=== PATIENT | female | born 1955 | race Caucasian/White ===

== ENCOUNTER 2017-08-30 17:04 | Inpatient (IN) ==
[2017-08-30] MEDS ORDERED: KETOROLAC 30 MG/1 ML VIAL IV STA (19:15)
[2017-08-30] MEDS ORDERED: KETOROLAC 30 MG/1 ML VIAL ONE (19:17)
[2017-08-30 19:48] LABS: Basophils # 0.1 10*3/uL (0.0-0.2); Basophils % 0.5 % (0.0-0.8); Eosinophils # 0.2 10*3/uL (0.0-0.87); Eosinophils % 1.5 % (0.00-10.9); Hematocrit 44.4 VOL% (35.7-47.0); Hemoglobin 15.4 GM/DL (12.0-16.0); Immature Granulocytes % 0.5 %; Immature Granulocytes Absolute 0.07 #; Lymphocytes # 3.2 10*3/uL (1.4-4.0); Lymphocytes % 21.5 % (21.3-54.2); Mean Corpuscular HGB Conc 34.7 GM/DL (32-36); Mean Corpuscular Hemoglobin 31 PG (27-34); Mean Corpuscular Volume 88.1 FL (87-102); Mean Platelet Volume 10.4 FL (9.6-12.0); Monocytes % 6.9 % (1.7-12.7); Neutrophils # 10.4 10*3/uL (1.4-7.4); Neutrophils % 69.1 % (38.7-73.9); Platelet Count 285 T/CUMM (130-400); Red Blood Count 5.04 MC/CUMM (3.8-5.5); Red Cell Distribution Width 13.2 % (9.3-17.3)
[2017-08-30 20:08] LABS: Alanine Aminotransferase 23 U/L (13-56); Albumin 3.5 G/DL (3.4-5.0); Alkaline Phosphatase 107 U/L (45-117); Aspartate Amino Transferase 15 U/L (0-37); Bilirubin,Total < 0.39 MG/DL (0.2-1.0); Blood Urea Nitrogen 9 MG/DL (7-18); Calcium 8.6 MG/DL (8.5-10.1); Glucose 81 MG/DL (74-106); Osmolality,Calculated 276.4 MOS/KG (273-304); Potassium 3.7 MMOL/L (3.5-5.1); Sodium 140 MMOL/L (136-145)
[2017-08-30] MEDS ORDERED: CEFEPIME 2,000 MG in SODIUM CHLORIDE 0.9% 100 ML IV STA (20:52)
[2017-08-30] MEDS ORDERED: ONDANSETRON 4 MG/2 ML VIAL IV STA (20:53)
[2017-08-30] MEDS ORDERED: metroNIDAZOLE INJ 500 MG in PREMIX 1 EACH IV STA (20:53)
[2017-08-30] MEDS ORDERED: MORPHINE 2 MG/1 ML SYRINGE IV STA (20:53)
[2017-08-30] MEDS ORDERED: CEFEPIME 2,000 MG in SODIUM CHLORIDE 0.9% 50 ML IV STA (20:59)
[2017-08-30] MEDS ORDERED: ONDANSETRON 4 MG/2 ML VIAL ONE (21:01)
[2017-08-30] MEDS ORDERED: metroNIDAZOLE 500 MG/100 ML PREMIX IV ONE (21:01)
[2017-08-30] MEDS ORDERED: MORPHINE 2 MG/1 ML SYRINGE ONE (21:02)
[2017-08-30] MEDS ORDERED: SODIUM CHLORIDE 0.9% 1,000 ML IV STA (21:06)
[2017-08-31] MEDS: LEVOFLOXACIN INJ 500 MG in PREMIX 1 EACH IV SCH (02:12)
[2017-08-31] MEDS: metroNIDAZOLE INJ 500 MG in PREMIX 1 EACH IV SCH ×3 (06:10→21:01)
[2017-08-31 06:30] LABS: Basophils # 0.1 10*3/uL (0.0-0.2); Basophils % 0.5 % (0.0-0.8); Eosinophils # 0.2 10*3/uL (0.0-0.87); Eosinophils % 1.9 % (0.00-10.9); Hematocrit 38.2 VOL% (35.7-47.0); Immature Granulocytes % 0.4 %; Immature Granulocytes Absolute 0.05 #; Lymphocytes # 2.3 10*3/uL (1.4-4.0); Lymphocytes % 18.7 % (21.3-54.2); Mean Corpuscular HGB Conc 34.3 GM/DL (32-36); Mean Corpuscular Hemoglobin 31 PG (27-34); Mean Platelet Volume 10.3 FL (9.6-12.0); Monocytes # 1.1 10*3/uL (0.11-0.8); Neutrophils # 8.5 10*3/uL (1.4-7.4); Neutrophils % 69.5 % (38.7-73.9); Platelet Count 255 T/CUMM (130-400); Red Blood Count 4.29 MC/CUMM (3.8-5.5); Red Cell Distribution Width 13.2 % (9.3-17.3); White Blood Count 12.2 T/CUMM (4-12)
[2017-08-31 06:42] LABS: Hemoglobin 13.1 GM/DL (12.0-16.0)
[2017-08-31 07:08] LABS: Albumin 2.7 G/DL (3.4-5.0); Bilirubin,Total 0.8 MG/DL (0.2-1.0); Osmolality,Calculated 273.5 MOS/KG (273-304); Potassium 3.7 MMOL/L (3.5-5.1); Total Protein 5.9 G/DL (6.4-8.3)
[2017-08-31] MEDS: PANTOPRAZOLE 40 MG TABLET PO SCH (09:03)
[2017-08-31] MEDS: SODIUM CHLORIDE 0.9% 1,000 ML IV SCH (12:14)
[2017-08-31] MEDS ORDERED: DEXTROSE 10% 1,000 ML IV PRN (17:00)
[2017-08-31] MEDS: FAT EMULSION 20% 250 ML IV SCH (17:10)
[2017-08-31] MEDS: TRACE ELEMENTS (5) 1 ML, MULTIVITAMIN INJ 10 ML in AMINO ACIDS/DEXT/LYTES 4.25-5% 2,000 ML IV SCH (17:11)
[2017-08-31] MEDS: ENOXAPARIN 40 MG/0.4 ML SYRINGE SUBCUT SCH (21:00)
[2017-08-31] MEDS: AMITRIPTYLINE 10 MG TABLET PO SCH (21:02)
[2017-09-01] MEDS: metroNIDAZOLE INJ 500 MG in PREMIX 1 EACH IV SCH ×3 (05:40→20:35)
[2017-09-01] MEDS: SODIUM CHLORIDE 0.9% 1,000 ML IV SCH ×3 (05:40→15:12)
[2017-09-01 06:07] LABS: Basophils # 0.1 10*3/uL (0.0-0.2); Basophils % 0.5 % (0.0-0.8); Eosinophils # 0.4 10*3/uL (0.0-0.87); Eosinophils % 4.1 % (0.00-10.9); Hematocrit 36.3 VOL% (35.7-47.0); Hemoglobin 12.5 GM/DL (12.0-16.0); Immature Granulocytes % 0.4 %; Immature Granulocytes Absolute 0.04 #; Lymphocytes # 2.5 10*3/uL (1.4-4.0); Lymphocytes % 25.3 % (21.3-54.2); Mean Corpuscular HGB Conc 34.4 GM/DL (32-36); Mean Corpuscular Hemoglobin 31 PG (27-34); Mean Corpuscular Volume 88.8 FL (87-102); Monocytes # 0.9 10*3/uL (0.11-0.8); Monocytes % 8.7 % (1.7-12.7); Platelet Count 225 T/CUMM (130-400); Red Blood Count 4.09 MC/CUMM (3.8-5.5); Red Cell Distribution Width 12.8 % (9.3-17.3); White Blood Count 9.9 T/CUMM (4-12)
[2017-09-01 06:42] LABS: Calcium 8.1 MG/DL (8.5-10.1); Osmolality,Calculated 276.5 MOS/KG (273-304); Potassium 3.7 MMOL/L (3.5-5.1)
[2017-09-01 06:46] LABS: Magnesium 2.1 MG/DL (1.8-2.4); Phosphorous 3.3 MG/DL (2.5-4.9); Prealbumin 14.2 MG/DL (20-40)
[2017-09-01] MEDS: LEVOFLOXACIN INJ 500 MG in PREMIX 1 EACH IV SCH (08:25)
[2017-09-01] MEDS: PANTOPRAZOLE 40 MG TABLET PO SCH (08:25)
[2017-09-01] MEDS: CITALOPRAM 40 MG TABLET PO SCH (08:25)
[2017-09-01] MEDS ORDERED: AMITRIPTYLINE 10 MG TABLET PO SCH (09:00)
[2017-09-01] MEDS: ONDANSETRON 4 MG/2 ML VIAL IV PRN (10:03)
[2017-09-01] MEDS: FAT EMULSION 20% 250 ML IV SCH (15:14)
[2017-09-01 17:51] LABS: Apearance,Urine CLEAR (Clear); Bacteria,Urine Occasional /HPF (Few); Bilirubin,Urine Negative (Negative); Blood, Urine Negative (Negative); Glucose,Urine (UA) Negative (Negative); Ketones,Urine 5 mg/dL (Negative); Nitrite,Urine Negative (Negative); Protein,Urine Negative; Squamous Epithelial Cell,Urine Occasional /HPF (0-10); Urine Color Yellow (Yellow); Urine Specific Gravity 1.008 (1.001-1.035); Urine Urobilinogen < 2.0 EU/DL (0.2-1.0); WBC,Urine <1 /HPF (0-6)
[2017-09-01] MEDS: AMITRIPTYLINE 10 MG TABLET PO SCH (20:00)
[2017-09-01] MEDS: TRACE ELEMENTS (5) 1 ML, MULTIVITAMIN INJ 10 ML in AMINO ACIDS/DEXT/LYTES 4.25-5% 2,000 ML IV SCH (20:35)
[2017-09-01] MEDS: ENOXAPARIN 40 MG/0.4 ML SYRINGE SUBCUT SCH (20:43)
[2017-09-02] MEDS: MORPHINE 2 MG/1 ML SYRINGE IV PRN ×2 (03:32→08:18)
[2017-09-02] MEDS: ONDANSETRON 4 MG/2 ML VIAL IV PRN ×3 (03:32→13:12)
[2017-09-02] MEDS: SODIUM CHLORIDE 0.9% 1,000 ML IV SCH ×2 (03:33→15:18)
[2017-09-02] MEDS: metroNIDAZOLE INJ 500 MG in PREMIX 1 EACH IV SCH ×3 (05:52→21:58)
[2017-09-02] MEDS: LEVOFLOXACIN INJ 500 MG in PREMIX 1 EACH IV SCH (08:08)
[2017-09-02] MEDS: PANTOPRAZOLE 40 MG TABLET PO SCH (08:09)
[2017-09-02] MEDS: CITALOPRAM 40 MG TABLET PO SCH (08:09)
[2017-09-02] MEDS: FAT EMULSION 20% 250 ML IV SCH (15:14)
[2017-09-02] MEDS: AMITRIPTYLINE 10 MG TABLET PO SCH (18:11)
[2017-09-02] MEDS: ENOXAPARIN 40 MG/0.4 ML SYRINGE SUBCUT SCH (22:40)
[2017-09-03] MEDS: SODIUM CHLORIDE 0.9% 1,000 ML IV SCH ×3 (01:33→16:36)
[2017-09-03] MEDS: TRACE ELEMENTS (5) 1 ML, MULTIVITAMIN INJ 10 ML in AMINO ACIDS/DEXT/LYTES 4.25-5% 2,000 ML IV SCH (01:33)
[2017-09-03 06:48] LABS: Basophils # 0.1 10*3/uL (0.0-0.2); Basophils % 0.6 % (0.0-0.8); Eosinophils # 0.4 10*3/uL (0.0-0.87); Hematocrit 36.7 VOL% (35.7-47.0); Hemoglobin 12.4 GM/DL (12.0-16.0); Immature Granulocytes % 0.4 %; Immature Granulocytes Absolute 0.04 #; Lymphocytes # 2.8 10*3/uL (1.4-4.0); Lymphocytes % 27.5 % (21.3-54.2); Mean Corpuscular HGB Conc 33.8 GM/DL (32-36); Mean Corpuscular Hemoglobin 30 PG (27-34); Mean Corpuscular Volume 89.5 FL (87-102); Mean Platelet Volume 10.6 FL (9.6-12.0); Monocytes # 0.8 10*3/uL (0.11-0.8); Monocytes % 8.2 % (1.7-12.7); Neutrophils % 59.3 % (38.7-73.9); Platelet Count 244 T/CUMM (130-400); Red Cell Distribution Width 12.8 % (9.3-17.3); White Blood Count 10.1 T/CUMM (4-12)
[2017-09-03 07:23] LABS: Calcium 7.9 MG/DL (8.5-10.1); Osmolality,Calculated 280.3 MOS/KG (273-304); Potassium 3.9 MMOL/L (3.5-5.1)
[2017-09-03] MEDS: PANTOPRAZOLE 40 MG TABLET PO SCH ×2 (10:34→16:37)
[2017-09-03] MEDS: CITALOPRAM 40 MG TABLET PO SCH (10:34)
[2017-09-03] MEDS: LEVOFLOXACIN INJ 500 MG in PREMIX 1 EACH IV SCH (10:34)
[2017-09-03] MEDS: metroNIDAZOLE INJ 500 MG in PREMIX 1 EACH IV SCH ×2 (13:12→21:46)
[2017-09-03] MEDS: FAT EMULSION 20% 250 ML IV SCH (16:37)
[2017-09-03] MEDS: LISINOPRIL 10 MG TABLET PO SCH (16:38)
[2017-09-03] MEDS: ASPIRIN EC 81 MG TABLET PO SCH (16:39)
[2017-09-03] MEDS: AMITRIPTYLINE 10 MG TABLET PO SCH (18:36)
[2017-09-03] MEDS: ENOXAPARIN 40 MG/0.4 ML SYRINGE SUBCUT SCH (21:45)
[2017-09-04] MEDS: SODIUM CHLORIDE 0.9% 1,000 ML IV SCH ×2 (06:30→07:16)
[2017-09-04] MEDS: TRACE ELEMENTS (5) 1 ML, MULTIVITAMIN INJ 10 ML in AMINO ACIDS/DEXT/LYTES 4.25-5% 2,000 ML IV SCH (06:30)
[2017-09-04] MEDS: ASPIRIN EC 81 MG TABLET PO SCH (09:47)
[2017-09-04] MEDS: PANTOPRAZOLE 40 MG TABLET PO SCH (09:47)
[2017-09-04] MEDS: CITALOPRAM 40 MG TABLET PO SCH (09:47)
[2017-09-04] MEDS: LISINOPRIL 10 MG TABLET PO SCH ×2 (09:48→20:52)
[2017-09-04] MEDS: LEVOFLOXACIN INJ 500 MG in PREMIX 1 EACH IV SCH (09:48)
[2017-09-04] MEDS: metroNIDAZOLE INJ 500 MG in PREMIX 1 EACH IV SCH ×2 (11:26→22:07)
[2017-09-04] MEDS: FAT EMULSION 20% 250 ML IV SCH (15:31)
[2017-09-04] MEDS: AMITRIPTYLINE 10 MG TABLET PO SCH (17:10)
[2017-09-04] MEDS ORDERED: AMITRIPTYLINE 25 MG TABLET PO SCH (22:00)
[2017-09-04] MEDS: ENOXAPARIN 40 MG/0.4 ML SYRINGE SUBCUT SCH (22:07)
[2017-09-05 06:45] LABS: Basophils # 0.1 10*3/uL (0.0-0.2); Basophils % 0.7 % (0.0-0.8); Eosinophils # 0.6 10*3/uL (0.0-0.87); Eosinophils % 6.4 % (0.00-10.9); Hematocrit 38.5 VOL% (35.7-47.0); Immature Granulocytes % 0.8 %; Immature Granulocytes Absolute 0.08 #; Lymphocytes # 2.7 10*3/uL (1.4-4.0); Lymphocytes % 28.2 % (21.3-54.2); Mean Corpuscular HGB Conc 33.8 GM/DL (32-36); Mean Corpuscular Hemoglobin 30 PG (27-34); Mean Corpuscular Volume 88.3 FL (87-102); Mean Platelet Volume 10.6 FL (9.6-12.0); Monocytes # 0.8 10*3/uL (0.11-0.8); Monocytes % 8.6 % (1.7-12.7); Neutrophils # 5.2 10*3/uL (1.4-7.4); Neutrophils % 55.3 % (38.7-73.9); Platelet Count 289 T/CUMM (130-400); Red Blood Count 4.36 MC/CUMM (3.8-5.5); Red Cell Distribution Width 13.1 % (9.3-17.3); White Blood Count 9.5 T/CUMM (4-12)
[2017-09-05 07:11] LABS: Calcium 8.9 MG/DL (8.5-10.1); Osmolality,Calculated 276.5 MOS/KG (273-304); Potassium 3.9 MMOL/L (3.5-5.1)
[2017-09-05 08:16] VITALS: BP 144/65
[2017-09-05] MEDS: ASPIRIN EC 81 MG TABLET PO SCH (10:32)
[2017-09-05] MEDS: CITALOPRAM 40 MG TABLET PO SCH (10:32)
[2017-09-05] MEDS: LISINOPRIL 10 MG TABLET PO SCH (10:32)
[2017-09-05] MEDS: PANTOPRAZOLE 40 MG TABLET PO SCH (10:32)
== END 2017-09-05 11:23 | disposition home or self-care (01) | DRG 392 ==
LOC: N.ED 17:04 → N.EDINP 22:04 → SUATTDRO 22:04 → N.2E 22:36
PROVIDERS: ADMIT Internal Medicine; ATTEND Internal Medicine

== ENCOUNTER 2019-02-26 11:25 | Observation (INO) ==
[2019-02-26 12:27] LABS: Basophils # 0.1 10*3/uL (0.0-0.2); Basophils % 0.4 % (0.0-0.8); Hematocrit 41.4 VOL% (35.7-47.0); Hemoglobin 13.1 GM/DL (12.0-16.0); Immature Granulocytes % 0.9 %; Immature Granulocytes Absolute 0.12 #; Lymphocytes # 2.6 10*3/uL (1.4-4.0); Lymphocytes % 18.3 % (21.3-54.2); Mean Corpuscular HGB Conc 31.6 GM/DL (32-36); Mean Corpuscular Hemoglobin 25 PG (27-34); Mean Corpuscular Volume 78.7 FL (87-102); Mean Platelet Volume 9.8 FL (9.6-12.0); Monocytes # 0.9 10*3/uL (0.11-0.8); Monocytes % 6.3 % (1.7-12.7); Neutrophils # 10.4 10*3/uL (1.4-7.4); Neutrophils % 74.1 % (38.7-73.9); Platelet Count 370 T/CUMM (130-400); Red Blood Count 5.26 MC/CUMM (3.8-5.5); Red Cell Distribution Width 17.9 % (9.3-17.3)
[2019-02-26 12:57] LABS: Amorphous Crystals,Urine Occasional /HPF (Few); Apearance,Urine CLOUDY (Clear); Bilirubin,Urine Negative (Negative); Blood, Urine Negative (Negative); Glucose,Urine (UA) Negative (Negative); Ketones,Urine 20 mg/dL (Negative); Nitrite,Urine Negative (Negative); Protein,Urine Negative; RBC,Urine 10 /HPF (0-4); Squamous Epithelial Cell,Urine Occasional /HPF (0-10); Urine Color Yellow (Yellow); Urine Urobilinogen < 2.0 EU/DL (0.2-1.0)
[2019-02-26 13:17] LABS: Barbiturates Screen,Urine Negative (Negative); Benzodiazepines Screen,Urine Negative (Negative); Cannabinoid Screen,Urine Negative (Negative); Opiate Screen,Urine Negative (Negative); Phencyclidine Screen,Urine Negative (Negative)
[2019-02-26 13:30] LABS: Sedimentation Rate-Westergren 7 MM/HR (0-30)
[2019-02-26 14:05] LABS: Albumin 3.7 G/DL (3.4-5.0); Bilirubin,Total 0.5 MG/DL (0.2-1.0); Calcium 9.1 MG/DL (8.5-10.1); Osmolality,Calculated 270.1 MOS/KG (273-304); Total Protein 7.9 G/DL (6.4-8.3)
[2019-02-26] MEDS ORDERED: ONDANSETRON 4 MG/2 ML VIAL IV PRN (14:37)
[2019-02-26] MEDS ORDERED: MELOXICAM 7.5 MG TABLET PO PRN (14:40)
[2019-02-26] MEDS ORDERED: NITROGLYCERIN SL 0.4 MG TABLET SL PRN (14:41)
[2019-02-26] MEDS ORDERED: LORazepam 2 MG/1 ML VIAL IV STA (14:52)
[2019-02-26] MEDS ORDERED: ERGOCALCIFEROL 50,000 UNIT CAPSULE PO SCH (15:00)
[2019-02-26] MEDS: ENOXAPARIN 40 MG/0.4 ML SYRINGE SUBCUT SCH (16:59)
[2019-02-26] MEDS: SODIUM CHLORIDE 0.45% 1,000 ML IV SCH (16:59)
[2019-02-26] MEDS: PRAMIPEXOLE 0.25 MG TABLET PO SCH (20:44)
[2019-02-26] MEDS ORDERED: POTASSIUM CHLORIDE 20 MEQ TABLET PO ONE (23:32)
[2019-02-27] MEDS: SODIUM CHLORIDE 0.9% 1,000 ML IV SCH ×3 (00:16→19:52)
[2019-02-27] MEDS: SODIUM CHLORIDE 0.45% 1,000 ML IV SCH (00:17)
[2019-02-27] MEDS: METOPROLOL TARTRATE 25 MG TABLET PO SCH ×3 (00:26→20:54)
[2019-02-27 05:15] LABS: Basophils # 0.1 10*3/uL (0.0-0.2); Basophils % 0.6 % (0.0-0.8); Eosinophils % 0.1 % (0.00-10.9); Hematocrit 36.5 VOL% (35.7-47.0); Hemoglobin 11.3 GM/DL (12.0-16.0); Immature Granulocytes % 0.6 %; Immature Granulocytes Absolute 0.09 #; Lymphocytes # 3.5 10*3/uL (1.4-4.0); Lymphocytes % 22.5 % (21.3-54.2); Mean Corpuscular Hemoglobin 25 PG (27-34); Mean Platelet Volume 10.4 FL (9.6-12.0); Monocytes # 1.3 10*3/uL (0.11-0.8); Monocytes % 8.4 % (1.7-12.7); Neutrophils # 10.5 10*3/uL (1.4-7.4); Neutrophils % 67.8 % (38.7-73.9); Platelet Count 343 T/CUMM (130-400); Red Blood Count 4.56 MC/CUMM (3.8-5.5); Red Cell Distribution Width 17.5 % (9.3-17.3); White Blood Count 15.4 T/CUMM (4-12)
[2019-02-27 05:26] LABS: Calcium 8.2 MG/DL (8.5-10.1); Osmolality,Calculated 264.4 MOS/KG (273-304); Potassium 3.5 MMOL/L (3.5-5.1)
[2019-02-27] MEDS: ACETAMINOPHEN 325 MG TABLET PO PRN (08:44)
[2019-02-27] MEDS: PANTOPRAZOLE 40 MG TABLET PO SCH (08:45)
[2019-02-27] MEDS: CITALOPRAM 40 MG TABLET PO SCH (08:45)
[2019-02-27] MEDS ORDERED: LOSARTAN/HCTZ 50-12.5 MG TABLET PO SCH (09:00)
[2019-02-27] MEDS ORDERED: POTASSIUM CHLORIDE 20 MEQ TABLET PO ONE (12:49)
[2019-02-27] MEDS ORDERED: FUROSEMIDE 40 MG/4 ML VIAL IV ONE (12:52)
[2019-02-27] MEDS: amLODIPine 5 MG TABLET PO SCH (14:32)
[2019-02-27] MEDS: ENOXAPARIN 40 MG/0.4 ML SYRINGE SUBCUT SCH (17:15)
[2019-02-27 18:55] LABS: Folate 21.5 NG/ML (5.4-24.0)
[2019-02-27] MEDS: ALBUTEROL/IPRATROPIUM 3 ML NEB RESP TX SCH (20:01)
[2019-02-27] MEDS: PRAMIPEXOLE 0.25 MG TABLET PO SCH (20:54)
[2019-02-28] MEDS: ALBUTEROL/IPRATROPIUM 3 ML NEB RESP TX SCH ×4 (01:21→19:35)
[2019-02-28 05:01] LABS: Basophils # 0.1 10*3/uL (0.0-0.2); Basophils % 0.5 % (0.0-0.8); Hematocrit 38.7 VOL% (35.7-47.0); Hemoglobin 12.1 GM/DL (12.0-16.0); Immature Granulocytes % 0.5 %; Immature Granulocytes Absolute 0.08 #; Lymphocytes # 3.2 10*3/uL (1.4-4.0); Lymphocytes % 21.5 % (21.3-54.2); Mean Corpuscular HGB Conc 31.3 GM/DL (32-36); Mean Corpuscular Hemoglobin 25 PG (27-34); Mean Corpuscular Volume 79.3 FL (87-102); Mean Platelet Volume 10.4 FL (9.6-12.0); Monocytes # 1.4 10*3/uL (0.11-0.8); Monocytes % 9.3 % (1.7-12.7); Neutrophils # 10.2 10*3/uL (1.4-7.4); Neutrophils % 68.2 % (38.7-73.9); Platelet Count 352 T/CUMM (130-400); Red Blood Count 4.88 MC/CUMM (3.8-5.5); Red Cell Distribution Width 17.4 % (9.3-17.3)
[2019-02-28 05:07] LABS: Calcium 8.8 MG/DL (8.5-10.1); Potassium 3.2 MMOL/L (3.5-5.1)
[2019-02-28] MEDS: PANTOPRAZOLE 40 MG TABLET PO SCH (08:43)
[2019-02-28] MEDS: METOPROLOL TARTRATE 25 MG TABLET PO SCH ×2 (08:43→20:39)
[2019-02-28] MEDS: amLODIPine 5 MG TABLET PO SCH (08:45)
[2019-02-28] MEDS: CITALOPRAM 40 MG TABLET PO SCH (08:46)
[2019-02-28] MEDS: LOSARTAN 50 MG TABLET PO SCH (08:46)
[2019-02-28] MEDS: SODIUM CHLORIDE 0.9% 1,000 ML IV SCH (08:51)
[2019-02-28] MEDS ORDERED: CYANOCOBALAMIN 1000 MCG/1 ML VIAL IM ONE (09:00)
[2019-02-28] MEDS: ACETAMINOPHEN 325 MG TABLET PO PRN (10:14)
[2019-02-28] MEDS: ENOXAPARIN 40 MG/0.4 ML SYRINGE SUBCUT SCH (15:47)
[2019-02-28] MEDS: PRAMIPEXOLE 0.25 MG TABLET PO SCH (20:39)
[2019-03-01] MEDS: ALBUTEROL/IPRATROPIUM 3 ML NEB RESP TX SCH ×2 (00:36→07:14)
[2019-03-01 04:05] LABS: Basophils # 0.1 10*3/uL (0.0-0.2); Basophils % 0.5 % (0.0-0.8); Eosinophils % 0.3 % (0.00-10.9); Hematocrit 38.5 VOL% (35.7-47.0); Hemoglobin 11.9 GM/DL (12.0-16.0); Immature Granulocytes % 0.7 %; Immature Granulocytes Absolute 0.09 #; Lymphocytes # 3.5 10*3/uL (1.4-4.0); Lymphocytes % 25.2 % (21.3-54.2); Mean Corpuscular HGB Conc 30.9 GM/DL (32-36); Mean Corpuscular Hemoglobin 25 PG (27-34); Mean Corpuscular Volume 79.5 FL (87-102); Mean Platelet Volume 10.1 FL (9.6-12.0); Monocytes # 1.3 10*3/uL (0.11-0.8); Monocytes % 9.3 % (1.7-12.7); Neutrophils # 8.8 10*3/uL (1.4-7.4); Platelet Count 309 T/CUMM (130-400); Red Blood Count 4.84 MC/CUMM (3.8-5.5); Red Cell Distribution Width 17.2 % (9.3-17.3); White Blood Count 13.8 T/CUMM (4-12)
[2019-03-01 04:24] LABS: Calcium 8.4 MG/DL (8.5-10.1); Osmolality,Calculated 272.8 MOS/KG (273-304); Potassium 3.1 MMOL/L (3.5-5.1)
[2019-03-01] MEDS: POTASSIUM CHLORIDE 20 MEQ TABLET PO PRN ×4 (05:12→12:14)
[2019-03-01] MEDS ORDERED: levETIRAcetam 500 MG TABLET PO SCH (09:00)
[2019-03-01] MEDS ORDERED: CYANOCOBALAMIN 500 MCG TABLET PO SCH (09:00)
[2019-03-01] MEDS: METOPROLOL TARTRATE 25 MG TABLET PO SCH (09:09)
[2019-03-01] MEDS: CITALOPRAM 40 MG TABLET PO SCH (09:09)
[2019-03-01] MEDS: PANTOPRAZOLE 40 MG TABLET PO SCH (09:09)
[2019-03-01] MEDS: LOSARTAN 50 MG TABLET PO SCH (09:09)
[2019-03-01] MEDS: amLODIPine 5 MG TABLET PO SCH (09:09)
[2019-03-01 11:58] VITALS: BP 152/73
== END 2019-03-01 12:32 | disposition home or self-care (01) ==
LOC: EDBD → EDUNIT# → N.EDINP 11:25 → N.ED 11:25 → N.TELES 15:16
PROVIDERS: ADMIT Internal Medicine; ATTEND Internal Medicine